=== PATIENT | male | born 1955 | race Two or more races ===

== ENCOUNTER → 2022-08-23 | Emergency (ER) | payer OTHER ==
[~2022-08-23] VITALS: Ht 175.3 cm; Wt 93.0 kg
[~2022-08-23] MED LIST: ADULT LOW DOSE81 M1 PO; ATORVASTATIN CA10 MG PO; LOSARTAN POTAS100 MG PO
== END | disposition home or self-care (01) ==
LOC: ER 09:29
DX: G58.8 Other specified mononeuropathies (principal); I10 Essential (primary) hypertension